=== PATIENT | female | born 1970 | race Caucasian/White ===

== ENCOUNTER 2018-09-02 07:56 | Day surgery (SDC) | payer OTHER ==
[2018-09-02] MEDS ORDERED: BUPIVACAINE 0.25%/EPI (SDV) 10 ML INJ (08:45)
[2018-09-02] MEDS ORDERED: GENTAMICIN 80 MG INJ (10:12)
[2018-09-02] MEDS ORDERED: MIDAZOLAM 1 MG/ML 2 ML INJ (10:23)
[2018-09-02] MEDS ORDERED: PROPOFOL 20 ML (10:25)
[2018-09-02] MEDS ORDERED: GLYCOPYRROLATE 0.4 MG INJ (10:25)
[2018-09-02] MEDS ORDERED: ROCURONIUM 50 MG INJ (10:25)
[2018-09-02] MEDS ORDERED: NEOSTIGMINE 3 MG/3 ML SYRINGE (10:25)
[2018-09-02] MEDS ORDERED: CEFAZOLIN 1 GM INJ (10:25)
[2018-09-02] MEDS ORDERED: FENTAnyl 50 MCG/ML VIAL ×2 (10:27→11:10)
[2018-09-02] MEDS ORDERED: ONDANSETRON 4 MG INJ (10:28)
[2018-09-02] MEDS ORDERED: DEXAMETHASONE 4 MG/ML 1 ML INJ (10:28)
[2018-09-02] MEDS ORDERED: ONDANSETRON 4 MG INJ IV (10:30)
[2018-09-02] MEDS ORDERED: IPRATROPIUM (NEB) 0.5 MG/2.5 ML AMP HHN (10:30)
[2018-09-02] MEDS ORDERED: FENTAnyl 50 MCG/ML VIAL IV ×2 (10:30)
[2018-09-02] MEDS ORDERED: ALBUTEROL 0.083% (NEB) 2.5 MG/3 ML AMP HHN (10:30)
[2018-09-02] MEDS ORDERED: HYDROmorphONE 1 MG/5 ML IV SYRINGE IV (10:30)
[2018-09-02] MEDS ORDERED: TRIMETHOBENZAMIDE 100 MG/ML VIAL IM (10:30)
[2018-09-02] MEDS ORDERED: OXYCODONE/ACETAMINOPHEN (5/325) TAB PO (10:30)
[2018-09-02] MEDS ORDERED: EPHEDrine SULFATE 50 MG/5 ML SYG IV (10:30)
[2018-09-02] MEDS ORDERED: LABETALOL HCL 20MG INJ IV (10:30)
[2018-09-02] MEDS ORDERED: MIDAZOLAM 1 MG/ML 2 ML INJ IV (10:30)
[2018-09-02] MEDS ORDERED: hydrALAzine 20 MG INJ IV (10:30)
[2018-09-02] MEDS ORDERED: morphine 2 MG INJ IV (11:00)
[2018-09-02] MEDS ORDERED: HYDROCODONE/APAP (5/325) TAB PO (11:00)
[2018-09-02] MEDS ORDERED: ACETAMINOPHEN 325 MG TAB PO (11:00)
[2018-09-02] MEDS: BUPIVACAINE 0.25%/EPI (SDV) 30 ML INJ INJ (11:05)
[2018-09-02] MEDS: POLYMYXIN/BACITRACIN 1L IRRIG IRR (11:05)
[2018-09-02] MEDS: BUPIVACAINE LIPOSOME/PF 266 MG/20 ML VIAL INFIL (13:16)
[2018-09-02] MEDS ORDERED: SUGAMMADEX SODIUM 200 MG/2 ML VIAL IV (13:46)
[2018-09-02] MEDS: FENTAnyl 50 MCG/ML VIAL IV ×2 (14:05→14:19)
[2018-09-02] MEDS: ONDANSETRON 4 MG INJ IV (14:07)
[2018-09-02] MEDS: DIPHENHYDRAMINE 50 MG INJ IV (14:16)
[2018-09-02] MEDS: MEPERIDINE 25 MG INJ IV (14:52)
[2018-09-02] MEDS: HYDROmorphONE 1 MG/5 ML IV SYRINGE IV ×2 (14:55→15:10)
[2018-09-02] MEDS: OXYCODONE/ACETAMINOPHEN (5/325) TAB PO (15:13)
[2018-09-02] MEDS: ACETAMINOPHEN 500 MG TAB PO (16:03)
== END 2018-09-02 16:24 | disposition home or self-care (01) ==
LOC: SDS 07:56
DX: T85.44XA Capsular contracture of breast implant, initial encounter (principal); Y83.8 Other surgical procedures as the cause of abnormal reaction of the patient, or of later complication, without mention of misadventure at the time of the procedure
CPT/HCPCS: 19340; 84703; 88305